=== PATIENT | male | born 1960 | race Caucasian/White ===

== ENCOUNTER 2017-11-01 02:27 | Inpatient (IN) ==
[2017-11-01] MEDS ORDERED: dilTIAZem HCl 100 MG in D5% in Water 50 ML IVC SCH (02:45)
[2017-11-01 02:49] LABS: Basophils % 0.3 %; Eosinophils # 0.2 K/mcL (0.0-0.6); Eosinophils % 2.1 %; Hematocrit 39.3 % (37.5-50.1); Immature Granulocytes % 0.4 % (0-4); Lymphocytes # 1.9 K/mcL (0.6-4.6); Lymphocytes % 16.8 %; Mean Corpuscular HGB Conc 33.1 g/dL (31.6-35.5); Mean Corpuscular Hemoglobin 31.3 pg (28.0-33.3); Mean Corpuscular Volume 94.5 fL (83.0-100.0); Mean Platelet Volume 9.3 fL (9.4-12.4); Monocytes # 0.8 K/mcL (0.0-1.3); Monocytes % 6.8 %; Neutrophils # 8.4 K/mcL (1.6-8.9); Platelet Count 274 K/mcL (140-400); Red Blood Count 4.16 M/mcL (4.19-5.50); Red Cell Distribution Width 13.1 % (11.5-14.5); Segmented Neutrophils % 73.6 %
--- NOTE | 2017-11-01 02:50 | Emergency Department Note ---
Disposition Clinical Impression: Atrial fibrillation with rapid ventricular response, Tobacco abuse Dyspnea Qualifiers: Dyspnea type: unspecified Qualified Code(s): R06.00 - Dyspnea, unspecified Disposition: Admitted As Inpatient Condition: Good Time of Disposition: 04:31 SOB HPI - General Chief Complaint: ED Shortness of Breath/Dyspnea Stated Complaint: Dyspnea Time Seen by Provider: 11/01/17 02:35 Source: patient Limitations: no limitations Nursing Notes Reviewed: Yes Vital Signs Reviewed: Yes - History of Present Illness 57-year-old male pack per day smoker, hypertension, diabetes, hypercholesterolemia presents to the ED with difficulty breathing and racing of the heart. States the symptoms have been ongoing for the past week but last night around 2200 while getting ready for bed it seemed to be worse. Feels like his heart is fluttering. He states this is been ongoing for the past couple months actually. No other history of this before. EKG was performed showed that he has and atrial fibrillation with rapid ventricular response. He denies known history of atrial fibrillation. He is having some chest discomfort associated with this. Denies any recent fevers. He has been getting over a cough that was diagnosed as bronchitis. Whenever he exerts himself he feels more short breath. No history of cardiac ischemic disease. No history of blood clots. Denies any blood in the stool or blacked tarry stools. Denies any nausea or vomiting. Patient has a history of hemochromatosis which he follows with Dr. Pruitt. At this time will give him a bolus of 20 mg Cardizem his blood pressure is 148/97. Will be worked up and admitted. Pt Subjective Complaint: shortness of breath - Related Data Home Medications Medication Instructions Recorded Confirmed Aspirin Enteric Coated [Aspirin EC] 81 mg PO DAILY 06/07/15 10/11/17 Docusate [Colace] 100 mg PO DAILY PRN 06/07/15 10/11/17 Gemfibrozil [Lopid] 600 mg PO BIDWM 06/07/15 10/11/17 HYDROcodone/Acet 5/325 mg [[place] 1 tab PO TID PRN 06/07/15 10/11/17 5-325 mg] Hydrochlorothiazide 25 mg PO DAILY 06/07/15 10/11/17 Metformin [Glucophage] 1,000 mg PO BIDWM 06/07/15 10/11/17 NIFEdipine [Nifedical Xl] 30 mg PO DAILY 06/07/15 10/11/17 Omeprazole [PriLOSEC] 20 mg PO DAILY 06/07/15 10/11/17 Meloxicam [Mobic] 15 mg PO DAILY 10/11/15 10/11/17 Cholecalciferol (D-3) [Vitamin D] 1,000 unit PO DAILY 07/13/16 10/11/17 Glimepiride [Amaryl] 1 tab PO BID 07/13/16 10/15/17 Lisinopril [Zestril] 40 mg PO DAILY 07/13/16 10/11/17 Procardia 10/11/17 [place]-3/Dha/Epa/Fish Oil [Fish Oil 1 each PO 10/15/17 1,000 mg Softgel] Previous Rx's Medication Instructions Recorded Albuterol Sulfate [Albuterol 2 puff IH QID #1 inhaler 10/11/17 Inhaler] Azithromycin [Azithromycin 6-Tab 250 mg PO PER PKG DI #6 tab 10/11/17 Pack] Benzonatate [Tessalon] 200 mg PO TID PRN #20 capsule 10/11/17 Allergies Allergy/AdvReac Type Severity Reaction Status Date / Time No Known Allergies Allergy Verified 11/01/17 02:32 All systems ED: reviewed and negative except as stated. Review of Systems: As Per HPI Constitutional: Denies: fever, chills ENT ED: Reports: congestion Cardiovascular: Reports: chest pain, palpitations, dyspnea on exertion Respiratory: Reports: cough, dyspnea Gastrointestinal: Denies: abdominal pain, nausea, vomiting Genitourinary: Denies: urgency, dysuria Musculoskeletal: Denies: back pain Integumentary: Denies: rash, abrasion Neurological: Denies: headache Psychiatric: Denies: anxiety, depression Past Medical History - Past Medical History Attestation: Yes The following information was validated with the patient. Source: patient Medical history: Reports: diabetes, hyperlipidemia, hypertension Psychiatric history: Reports: no psych history - Social History Smoking Status: Current every day smoker Alcohol use: Reports: occasionally Drug use: Reports: none Physical Exam - General Limitations: no limitations General appearance: alert, in no apparent distress - Head Head exam: atraumatic, normocephalic, normal inspection - Eye Eye exam: Present: normal appearance, PERRL, EOMI - ENT ENT exam: normal exam, normal oropharynx, mucous membranes moist - Neck Neck exam: Present: normal inspection, full ROM, trachea midline. Absent: tenderness, meningismus - Chest Chest inspection: Present: normal inspection, symmetric chest wall rise. Absent : tenderness, rash - Respiratory Respiratory exam: Present: normal lung sounds bilaterally. Absent: respiratory distress, wheezes - Cardiovascular Cardiovascular exam: Present: tachycardia, irregular rhythm, normal heart sounds - Expanded Cardiovascular Exam Peripheral pulses: 2+: radial (R), radial (L) - Abdominal Exam Abdominal exam: Present: soft, Non-Tender, normal bowel sounds. Absent: tenderness, distention, guarding, rebound, rigidity - Extremities Exam Extremities exam: Present: normal inspection, full ROM, normal capillary refill. Absent: tenderness, pedal edema, calf tenderness - Back Exam Back exam: Present: normal inspection, full ROM. Absent: tenderness - Neurological Exam Neurological exam: Present: alert, oriented X3, normal gait - Psychiatric Psychiatric exam: Present: normal affect, normal mood - Skin Skin exam: Present: warm, dry, intact, normal color. Absent: rash, cyanosis, diaphoresis Course - Reevaluation(s) Reevaluation #1: After that Cardizem bolus and on a drip, his heart rate has come down to the upper 90s. He remains hemodynamically stable. His symptoms are improving. He still feels lightly short of breath. Review the chest x-ray showed out in large silhouette questionable pericardial effusion. I performed a bedside ultrasound that did not reveal any noticeable effusion or tamponade. Review of his labs he has a mild leukocytosis his sodium is low at 129. Glucose is 169. Labs or otherwise unremarkable. No inciting factors for his atrial fibrillation. He will require admission for further evaluation and workup. Impression is dyspnea and atrial fibrillation with rapid ventricular response. - Consultations Consultation #1: Spoke with on-call hospitalist surinder John to admit for new onset afib, atrial fibrillation c RVR, dyspnea. No further orders at this time Vital Signs Temperature 97.7 F 11/01/17 02:27 Pulse Rate 154 11/01/17 02:27 Respiratory Rate 20 11/01/17 02:27 Blood Pressure 148/97 11/01/17 02:27 O2 Sat by Pulse Oximetry 100 11/01/17 02:27 Temperature 97.7 F 11/01/17 02:27 Pulse Rate 96 11/01/17 04:29 Respiratory Rate 18 11/01/17 04:29 Blood Pressure 115/75 11/01/17 04:29 O2 Sat by Pulse Oximetry 97 11/01/17 04:29 Oxygen Delivery Oxygen Delivery Room Air Shortness of Breath/Dyspnea - MDM Narrative Medical decision making narrative: Patient was discussed with my attending physician who agrees with ED management and final disposition. They independently evaluated the patient. Please refer to their attestation to this encounter for additional information. This note was generated by [email or web address] recognition software and as a result grammatical or spelling errors may occur using this program. - Medical Records Medical records reviewed: Yes I reviewed the patient's medical records. - Lab Data Lab results reviewed: Yes I reviewed the patient's lab results. Result diagrams: 11/01/17 02:35 11/01/17 02:35 Lab Results 11/01/17 11/01/17 11/01/17 Range/Units 02:35 02:35 02:35 WBC 11.4 H (4.3-11.1) K/mcL RBC 4.16 L (4.19-5.50) M/mcL Hgb 13.0 (12.9-16.9) g/dL Hct 39.3 (37.5-50.1) % MCV 94.5 (83.0-100.0) fL MCH 31.3 (28.0-33.3) pg MCHC 33.1 (31.6-35.5) g/dL RDW 13.1 (11.5-14.5) % Plt Count 274 (140-400) K/mcL MPV 9.3 L (9.4-12.4) fL Immature Gran % 0.4 (0-4) % Seg Neutrophils % 73.6 % Lymphocytes % 16.8 % Monocytes % 6.8 % Eosinophils % 2.1 % Basophils % 0.3 % Neutrophils # 8.4 (1.6-8.9) K/mcL Lymphocytes # 1.9 (0.6-4.6) K/mcL Monocytes # 0.8 (0.0-1.3) K/mcL Eosinophils # 0.2 (0.0-0.6) K/mcL Basophils # 0.0 (0.0-0.2) K/mcL PT 12.8 H (9.4-12.1) Seconds INR 1.2 APTT 31.9 (26.0-36.0) Seconds Sodium 129 L (136-145) mEq/L Potassium 4.5 (3.5-5.1) mEq/L Chloride 98 (98-107) mEq/L Carbon Dioxide 22 L (23-29) mEq/L BUN 20 (6-20) mg/dL Creatinine 1.19 (0.70-1.30) mg/dL Est GFR ( Amer) > 60 (> 60) Est GFR (Non-Af Amer) > 60 (> 60) BUN/Creatinine Ratio 17 (6-26) Glucose 169 H (70-105) mg/dL Calculated Osmolality 275 L (280-300) Calcium 10.2 (8.6-10.3) mg/dL Troponin I (< 0.04) ng/mL TSH 4.221 (0.340-5.600) mcIU/mL 11/01/17 Range/Units 02:35 WBC (4.3-11.1) K/mcL RBC (4.19-5.50) M/mcL Hgb (12.9-16.9) g/dL Hct (37.5-50.1) % MCV (83.0-100.0) fL MCH (28.0-33.3) pg MCHC (31.6-35.5) g/dL RDW (11.5-14.5) % Plt Count (140-400) K/mcL MPV (9.4-12.4) fL Immature Gran % (0-4) % Seg Neutrophils % % Lymphocytes % % Monocytes % % Eosinophils % % Basophils % % Neutrophils # (1.6-8.9) K/mcL Lymphocytes # (0.6-4.6) K/mcL Monocytes # (0.0-1.3) K/mcL Eosinophils # (0.0-0.6) K/mcL Basophils # (0.0-0.2) K/mcL PT (9.4-12.1) Seconds INR APTT (26.0-36.0) Seconds Sodium (136-145) mEq/L Potassium (3.5-5.1) mEq/L Chloride (98-107) mEq/L Carbon Dioxide (23-29) mEq/L BUN (6-20) mg/dL Creatinine (0.70-1.30) mg/dL Est GFR ( Amer) (> 60) Est GFR (Non-Af Amer) (> 60) BUN/Creatinine Ratio (6-26) Glucose (70-105) mg/dL Calculated Osmolality (280-300) Calcium (8.6-10.3) mg/dL Troponin I 0.03 (< 0.04) ng/mL TSH (0.340-5.600) mcIU/mL - Radiology Data Radiology results reviewed: Yes I reviewed the patient's radiology results. Chest X-Ray 11/01/17 02:39 IMPRESSION: 1. Clear lungs. 2. Interval enlargement of the cardiac silhouette. While this could be due to differences in technique and patient positioning pericardial effusion should be considered. D/ / Phillip Robbins MD / Phillip Robbins MD Interpreting Provider: Phillip Robbins MD - EKG Data EKG attestation: Yes I reviewed and interpreted this EKG. EKG results narrative: EKG performed 0232 atrial fibrillation with rapid ventricular response 1 32 bpm , nonspecific ST T-wave changes, QRS 118. Compared prior EKG performed 2013. This appears to be new onset atrial fibrillation. No acute ischemic changes. Critical Care Time Critical Care Time: Yes Total Critical Care Time: 40 Attestation: Critical care performed: Time is exclusive of separately billable procedures. Time includes: direct patient care, patient reassessment, coordination of patient care, interpretation of data (laboratory data, radiology data, and respiratory data), review of patient's medical records, medical consultation and documentation of patient care. Procedures included in critical care time: Procedures excluded from critical care time: Attestation Statement - Attestation Attestation: IChava MD, personally evaluated this patient and discussed their management with the resident physician. I reviewed the resident's note and agree with the documented findings, medical decision making, and plan of care. 57-year-old male persist to the emergency department with a complaint of having an intermittent sensation of a knot in his chest over the past 2 months. He sometimes has some mild palpitations associated with this. He complains over the past 2 weeks of having shortness of breath especially with exertion. On arrival in the emergency department the patient was found to be in atrial fibrillation with RVR. No prior history. On examination patient is a well-developed well-nourished well-appearing male in no acute distress. He is alert and oriented 3. There is no cyanosis or diaphoresis. Chest is nontender to palpation. Breath sounds are clear and equal bilaterally. Heart is irregularly irregular and tachycardic. Abdomen is soft and nontender with normal bowel sounds. EKG shows atrial fibrillation with RVR. Labs reviewed. Chest x-ray shows clear lungs. Patient received Cardizem and placed on Cardizem infusion with improvement in his heart rate remains in atrial fibrillation. The hospitalist, Dr. Carr, was consulted and accepted admission of the patient.
[2017-11-01 02:55] LABS: INR 1.2; Prothrombin Time 12.8 Seconds (9.4-12.1)
[2017-11-01 02:58] LABS: Activated Partial Thrombo Time 31.9 Seconds (26.0-36.0)
[2017-11-01] MEDS ORDERED: 0.9 % Sodium Chloride 1,000 ML ONE (03:03)
[2017-11-01 03:05] LABS: BUN/Creatinine Ratio 17 (6-26); Blood Urea Nitrogen 20 mg/dL (6-20); Calcium 10.2 mg/dL (8.6-10.3); Carbon Dioxide 22 mEq/L (23-29); Chloride 98 mEq/L (98-107); Glucose 169 mg/dL (70-105); Osmolality,Calculated 275 (280-300); Potassium 4.5 mEq/L (3.5-5.1); Sodium 129 mEq/L (136-145); eGFR For African Americans > 60 (> 60); eGFR For Non-African Americans > 60 (> 60)
[2017-11-01] MEDS ORDERED: 0.9 % Sodium Chloride 1,000 ML IVC SCH ×2 (03:15→04:45)
[2017-11-01 03:18] LABS: Thyroid Stimulating Hormone 4.221 mcIU/mL (0.340-5.600)
[2017-11-01] MEDS ORDERED: Ipratropium/Albuterol Neb 3 ML IH PRN (04:37)
[2017-11-01] MEDS ORDERED: Acetaminophen 325 MG TABLET PO PRN (04:37)
[2017-11-01] MEDS ORDERED: Nitroglycerin 0.4 MG TAB.SUBL SL PRN (04:37)
[2017-11-01] MEDS ORDERED: Dextrose Gel 15 GM/37.5 ML TUBE PO PRN ×2 (04:40)
[2017-11-01] MEDS ORDERED: D5% in Water 1,000 ML IVC PRN (04:40)
[2017-11-01] MEDS ORDERED: *HR* Dextrose 50 % in Water (Syg) 50 ML SYRINGE IVP PRN (04:40)
[2017-11-01] MEDS ORDERED: *HR* Heparin 5,000 UNIT/ML VIAL IVP PRN ×2 (04:40)
[2017-11-01] MEDS ORDERED: *HR* HYDROcodone/Acet 5/325 mg TABLET PO PRN (04:43)
[2017-11-01] MEDS ORDERED: Ondansetron 4 MG/2 ML VIAL IVP PRN (04:44)
[2017-11-01] MEDS ORDERED: Naloxone 0.4 MG/ML INJ IVP PRN (04:44)
[2017-11-01] MEDS ORDERED: *HR* Morphine 2 MG/ML SYRINGE IVP PRN (04:44)
--- NOTE | 2017-11-01 04:50 | Internal Med History&Physical ---
Date of Encounter: 11/01/17 Time of Encounter: 04:46 Assessment and Plan (1) Atrial fibrillation with rapid ventricular response Current visit: Yes Status: Acute A. fib with RVR possibly triggered by acute bronchitis possibly bacterial Continue Cardizem drip, start heparin drip as the patient has a CHA2 DS2 VASc score of 2 (HTN, DM) Cardiology consult Rocephin Check a UA Omeprazole for GI prophylaxis and heparin drip for DVT prophylaxis. The patient will be admitted for observation. Full code. Time spent on this admission 40 minutes (2) Acute bronchitis with COPD Current visit: Yes Status: Acute Low dose prednisone. will require pulmonary function tests as outpatient (3) Hypertension Current visit: Yes Status: Acute Continue home meds, start hydralazine IV as needed Qualifiers: Hypertension type: essential hypertension Qualified Code(s): I10 - Essential (primary) hypertension (4) Hemochromatosis Current visit: No Status: Chronic Follow-up as outpatient, managed by oncology Frequent phlebotomies Qualifiers: Hemochromatosis type: hereditary Qualified Code(s): E83.110 - Hereditary hemochromatosis (5) Tobacco abuse Current visit: Yes Status: Chronic Smoking cessation counseling given for 5 minutes, nicotine patch Internal Medicine - H&P: HPI Chief complaint: Shortness of breath Admitted From: Emergency Dept History of present illness: Mr. Church is a 57 year old male with a past medical history of tobacco use, diabetes not insulin-dependent, hypertension, never diagnosed with COPD, came to the emergency room complaining of difficulty breathing that started to get worse in the past week. He says that he has been having problems with heart flattering for the past 4 months intermittently. Worse last night that 10 PM as he felt his heart rate was very increased. Upon admission his heart rate was 154, an EKG showed atrial fibrillation with rapid ventricular response. Her blood cell count is 11.4, sodium 129, glucose 169. Chest x-ray shows an enlarged cardiac silhouette, pericardial effusion should be considered. Patient has been complaining of a productive cough and has been dealing with bronchitis for the past few weeks. Blood pressure is 148/97. Patient was started on a Cardizem 20 mg IV and drip was ordered. Says that his has been having bronchitis as well. Denies any other complaint. 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, rectal fissure repair) - Social History Smoking Status: Current every day smoker Packs per day: 1 pack per day Alcohol use: occasionally (3 beers) Drug use: none - Additional Family History Additional family history: Brother with colon cancer, brother with hypertensive cardiomyopathy Internal Medicine - H&P: Meds Aspirin Enteric Coated [Aspirin EC] 81 mg PO DAILY 06/07/15 [History] Docusate [Colace] 100 mg PO DAILY PRN 06/07/15 [History] Gemfibrozil [Lopid] 600 mg PO BIDWM 06/07/15 [History] HYDROcodone/Acet 5/325 mg [[place] 5-325 mg] 1 tab PO TID PRN 06/07/15 [History] Hydrochlorothiazide 25 mg PO DAILY 06/07/15 [History] Metformin [Glucophage] 1,000 mg PO BIDWM 06/07/15 [History] NIFEdipine [Nifedical Xl] 30 mg PO DAILY 06/07/15 [History] Omeprazole [PriLOSEC] 20 mg PO DAILY 06/07/15 [History] Meloxicam [Mobic] 15 mg PO DAILY 10/11/15 [History] Cholecalciferol (D-3) [Vitamin D] 1,000 unit PO DAILY 07/13/16 [History] Glimepiride [Amaryl] 1 tab PO BID 07/13/16 [History] Lisinopril [Zestril] 40 mg PO DAILY 07/13/16 [History] Albuterol Sulfate [Albuterol Inhaler] 2 puff IH QID #1 inhaler 10/11/17 [Rx] Azithromycin [Azithromycin 6-Tab Pack] 250 mg PO PER PKG DI #6 tab 10/11/17 [Rx] Benzonatate [Tessalon] 200 mg PO TID PRN #20 capsule 10/11/17 [Rx] Procardia 10/11/17 [History] [place]-3/Dha/Epa/Fish Oil [Fish Oil 1,000 mg Softgel] 1 each PO 10/15/17 [History ] 3 Allergy/AdvReac Type Severity Reaction Status Date / Time No Known Allergies Allergy Verified 11/01/17 02:32 All Systems PM: A 10-system review of systems was performed and is negative for pertinent findings except as documented above in the HPI. Review of systems: No chest pain, continues to be short of breath, other systems out of the 10 reviewed were negative - Constitutional Vitals: Temp Pulse Resp BP Pulse Ox 97.7 F 96 18 115/75 97 11/01/17 02:27 11/01/17 04:29 11/01/17 04:29 11/01/17 04:29 11/01/17 04:29 General appearance: Present: A&O X 3 - Head Head exam: Present: atraumatic, normocephalic - Eye Eye exam: Present: PERRL, conjuntiva pink, sclera anicteric Pupils: Present: PERRL - Neck Neck exam general surgery: Present: supple, trachea midline. Absent: lymphadenopathy - Respiratory Respiratory exam: Present: CTAB, wheezes (Mild diffuse wheezing). Absent: accessory muscle use, rales, rhonchi - Cardiovascular Cardiovascular exam: Present: irregular rhythm, RRR, +S1, +S2, tachycardia. Absent: diastolic murmur, gallop, rubs, systolic murmur - GI/Abdominal GI/Abdominal exam: Present: normal bowel sounds, soft, no peritoneal signs. Absent: distended, tenderness - Extremities Exam Extremities exam: Present: warm, radial pulses palpable and symmetrical. Absent : calf tenderness, cyanotic, pedal edema - Neurological Exam Neurological exam: Present: CN II-XII intact, oriented X3, no focal deficits. Absent: pronater drift, facial droop, speech deficit - Skin Skin exam: Present: dry, intact Internal Med - H&P Results - Labs CBC & Chem 7: 11/01/17 02:35 11/01/17 02:35
[2017-11-01] MEDS: Heparin 25,000 UNIT/500 ML D5W 25,000 UNIT/500 ML BAG IVC SCH (06:08)
[2017-11-01 08:54] LABS: Bilirubin,Urine Negative (Negative); Blood,Urine Negative (Negative); Clarity,Urine Clear (Clear); Color,Urine Yellow (Yellow); Glucose,Urine (UA) Normal (Normal); Ketones,Urine Negative (Negative); Leukocyte Esterase,Urine Negative (Negative); Nitrite,Urine Negative (Negative); PH,Urine 5.5 pH Units (5.0-8.0); Protein,Urine Negative (Neg-Trace); Specific Gravity,Urine 1.017 (1.010-1.025); Urobilinogen,Urine Normal (Normal)
[2017-11-01] MEDS ORDERED: Lisinopril 20 MG TABLET PO SCH (09:00)
[2017-11-01] MEDS ORDERED: NIFEdipine XL (24 HR) 30 MG TAB.ER.24 PO SCH (09:00)
[2017-11-01] MEDS ORDERED: cefTRIAXone 1,000 MG in Water for inj. (sterile) 10 ML IVP SCH (09:00)
[2017-11-01] MEDS: Insulin LISPRO 300 UNITS/3 ML VIAL SQ SCH ×4 (09:01→23:27)
--- NOTE | 2017-11-01 09:03 | Cardiology Consult Note ---
<Peter Upton - Last Filed: 11/01/17 12:52> Date of Encounter: 11/01/17 Time of Encounter: 09:00 Assessment and Plan (1) Atrial fibrillation with rapid ventricular response Current Visit: Yes Status: Acute Patient presented with elevated heart rate of 1 54 bpm; EKG demonstrated A. fib with RVR. Possibly triggered by acute bronchitis; possibly bacterial. Presented with leukocytosis. Currently on ceftriaxone Rate currently well controlled at 85 bpm. Plan: -ASA 81 mg -Heparin drip; CHA2 DS2 VASc score of 2 (HTN, DM) -Continuous cardiac monitoring -Echocardiogram has been ordered. -Patient will need workup for ischemia; C vs Stress test based on results of echocardiogram. (2) Hypertension Current Visit: Yes Status: Acute Patient has known history of HTN Presented with with a blood pressure of 148/97. Latest blood pressure reading was 111/87. Plan: -Hydralazine 10 mg IV Q6 PRN -HCTZ 25 mg PO QD -Lisinopril 40 mg PO QD -Nifedipine XL 30 mg PO QD Qualifiers: Hypertension type: essential hypertension Qualified Code(s): I10 - Essential (primary) hypertension (3) Tobacco abuse Current Visit: Yes Status: Chronic Patient admits to being a pack per day smoker. Plan: -Nicotine patch. (4) Hyperlipidemia Current Visit: Yes Status: Acute Gemfibrozil 600 mg PO BID WM Qualifiers: Qualified Code(s): E78.5 - Hyperlipidemia, unspecified Discussion w patient/family: The assessment and plan as outlined above was discussed with the patient and/or family members who expressed understanding and agreement. All questions were answered. Thank you for involving us in the care of your patient. Please call with any questions. History of Present Illness Consult date: 11/01/17 Chief complaint: Shortness of breath History of present illness: Mr. Church is a 57 year old male with a PMH of HTN, DM, HLD, hemachromatosis, and tobacco use (1 PPD) who presented to the ED with a chief complaint of SOB and palpitations. Patient reports that these symptoms have been ongoing for the last week. At approximately 10 PM while getting ready for bed, symptoms worsened. Patient reported that his heart was fluttering. No prior history of these symptoms. Denies a history of atrial fibrillation or cardiac disease. Reported having chest discomfort along with his palpitations. He reports getting over a cough that was diagnosed as bronchitis. Upon presentation, EKG demonstrated A. fib with RVR. On presentation, patient's pulse was 154 bpm and his respiratory rate was 20 per minute. Other vital signs were within normal limits. Patient was given a Cardizem bolus and was started on a Cardizem drip. Heart rate decreased to upper 90s. Patient was hemodynamically stable. Laboratory examination demonstrated an elevated white count 11.4. TSH and troponin were within normal limits. CXR demonstrated interval enlargement of cardiac silhouette; echocardiogram was ordered. Patient's [id number] score is 2 due to his history of HTN and DM; patient was therefore started on a heparin drip. He was also started on ceftriaxone. Patient was seen and examined this morning. He reports that he is still feeling short of breath. Denies any chest pain or palpitations. Denies diaphoresis, nausea, dizziness, or lightheadedness. Patient resting comfortably in bed and has no other complaints at this time. Past Med Surg Social Fam HX - Past Medical History Medical history: diabetes, GERD, hyperlipidemia, hypertension Psychiatric history: no psych history - Past Surgical History Surgical History: appendectomy - Social History Smoking Status: Current every day smoker Packs per day: 1 Smokeless Tobacco Status: No Alcohol use: occasionally Drug use: none Medications and Allergies Aspirin Enteric Coated [Aspirin EC] 81 mg PO DAILY 06/07/15 [History] Docusate [Colace] 100 mg PO DAILY PRN 06/07/15 [History] Gemfibrozil [Lopid] 600 mg PO BIDWM 06/07/15 [History] HYDROcodone/Acet 5/325 mg [[place] 5-325 mg] 1 tab PO TID PRN 06/07/15 [History] Hydrochlorothiazide 25 mg PO DAILY 06/07/15 [History] NIFEdipine [Nifedical Xl] 30 mg PO DAILY 06/07/15 [History] Omeprazole [PriLOSEC] 20 mg PO DAILY 06/07/15 [History] Cholecalciferol (D-3) [Vitamin D] 1,000 unit PO DAILY 07/13/16 [History] Glimepiride [Amaryl] 1 mg PO BID 07/13/16 [History] Lisinopril [Zestril] 40 mg PO DAILY 07/13/16 [History] Albuterol Sulfate [Albuterol Inhaler] 2 puff IH QID #1 inhaler 10/11/17 [Rx] [place]-3/Dha/Epa/Fish Oil [Fish Oil 1,000 mg Softgel] 1 cap PO DAILY 10/15/17 [ History] 3 Allergy/AdvReac Type Severity Reaction Status Date / Time No Known Allergies Allergy Verified 11/01/17 02:32 All Systems Review: A 10-system review of systems was performed and is negative for pertinent findings except as documented above in the HPI. - Constitutional Constitutional: no fatigue, no fever(s), no lethargy - Cardiovascular Cardiovascular: chest pain with exertion, dyspnea at rest, dyspnea on exertion, irregular heart rhythm, no chest pain at rest, no diaphoresis, no radiating jaw , neck or arm pain - Respiratory Respiratory: cough, dyspnea - Neurological Neurological: no syncope Physical Examination Vital Signs, Last 4 Hours Temp Pulse Resp BP Pulse Ox 11/01/17 07:26 97.8 F 85 16 111/87 97 11/01/17 05:12 98 F 93 18 111/73 94 General: Conversant, No Apparent Distress HEENT: Atraumatic, Normocephaly, Mucus Membranes Moist Neck: No JVD, Normal carotid pulses Cardiac: Other (Afib) Neuro: Alert and responsive, No focal deficits noted Skin: No rashes noted on visualized skin Musculoskeletal: No Chest Wall Tenderness Extremities: No Clubbing, No Cyanosis, No Edema, Normal Pulses Results 11/01/17 02:35 11/01/17 02:35 Consult Discharge Plan - Plan Referrals: Peggy Perdomo, [facility] EDUCATION SPECIALIST [Primary Care Provider] - <Dirk Leyva - Last Filed: 11/01/17 17:50> Date of Encounter: 11/01/17 - Attending Attestation I examined this patient and my medical decision-making was reviewed with the Resident Physician. I agree with the documented findings, disposition and treatment plan as described except to the extent set forth below. 57 YOM with DM,HTN, presents with OLIVAREZ and Exertional CP ECHO to evaluate RWMA (severe LV dysfunction) LHC in am due to continued mild orthopnea Assessment and Plan Discussion w patient/family: The assessment and plan as outlined above was discussed with the patient and/or family members who expressed understanding and agreement. All questions were answered. Thank you for involving us in the care of your patient. Please call with any questions. History of Present Illness History of present illness: Mr. Church is a 57 year old male All Systems Review: A 10-system review of systems was performed and is negative for pertinent findings except as documented above in the HPI. Physical Examination Vital Signs, Last 4 Hours Temp Pulse Resp BP Pulse Ox 11/01/17 17:00 97.5 F L 112 14 116/92 98 11/01/17 16:11 105 114/88 11/01/17 14:26 110 116/94 99 Results 11/01/17 02:35 11/01/17 02:35 Lab Results 11/01/17 11/01/17 12:01 14:00 APTT 35.6 Troponin I 0.03
--- NOTE | 2017-11-01 09:29 | Electrocardiograph Report ---
[place] [id number] Test Date: 2017-11-01 Pat Name: Dwayne Church Department: 104 Room: [id number] Gender: M Crm Coordinator: : 1960 Requested By: Taj Diehl Order Number: [id number] Reading MD: Elizabeth Lombardi Measurements Intervals [place] Rate: 132 P: IN: 0 QRS: 16 QRSD: 118 T: 29 QT: 288 QTc: 366 Interpretive Statements ATRIAL FIBRILLATION WITH RAPID VENTRICULAR RESPONSE MODERATE INTRAVENTRICULAR CONDUCTION DELAY NONSPECIFIC ST & T-WAVE ABNORMALITY ABNORMAL RHYTHM ECG Electronically Signed On 11-01-2017 9:27:01 EST by Elizabeth Lombardi
[2017-11-01 10:34] LABS: Adenovirus Not Detected (Not Detect); Bordetella Pertussis Not Detected (Not Detect); Chlamydophila pneumoniae Not Detected (Not Detect); Coronavirus 229E Not Detected (Not Detect); Coronavirus HKU1 Not Detected (Not Detect); Coronavirus NL63 Not Detected (Not Detect); Coronavirus OC43 Not Detected (Not Detect); Human Metapneumovirus Not Detected (Not Detect); Human Rhinovirus/Enterovirus Not Detected (Not Detect); Influenza A Subtype 2009 H1 Not Detected (Not Detect); Influenza A Untypeable Not Detected (Not Detect); Influenza B Not Detected (Not Detect); Mycoplasma pneumoniae Not Detected (Not Detect); Parainfluenza Virus 1 Not Detected (Not Detect); Parainfluenza Virus 2 Not Detected (Not Detect); Parainfluenza Virus 3 Not Detected (Not Detect); Parainfluenza Virus 4 Not Detected (Not Detect); Respiratory Syncytial Virus Not Detected (Not Detect)
[2017-11-01] MEDS ORDERED: ALPRAZolam 0.25 MG TABLET PO ONE (11:37)
[2017-11-01] MEDS: Nicotine 21 MG PATCH.TD24 TD SCH (11:41)
[2017-11-01] MEDS: hydroCHLOROthiazide 25 MG TABLET PO SCH (11:41)
--- NOTE | 2017-11-01 11:46 | Event Note ---
Date of Encounter: 11/01/17 Time of Encounter: 11:02 Patient is a 57y/o male admitted for new onset Afib with RVR and acute bronchitis with COPD. Pt seen and examined with present at bedside. Currently on cardizem gtt, rate appropriately controlled, on heparin gtt for anticoagulation Will start on Levaquin 750mg IV qd and d/c ceftriaxone UA negative for UTI respiratory viral panel negative cardiology evaluation requested Pt reports of difficulty breathing even though O2 saturation is 97% on room air , pt appears very anxious and restless. Will give one time dose of Xanax 0.25mg PO. Will closely monitor respiratory status
[2017-11-01] MEDS: predniSONE 20 MG TABLET PO SCH (11:48)
[2017-11-01] MEDS: Aspirin Enteric Coated 81 MG Tablet PO SCH (11:48)
[2017-11-01] MEDS: Levofloxacin 750 MG/150 ML 750 MG/150 ML BAG IVPB SCH (12:38)
[2017-11-01] MEDS ORDERED: ALPRAZolam 0.5 MG TABLET PO ONE (13:44)
[2017-11-01] MEDS ORDERED: Furosemide 40 MG/4 ML VIAL IVP ONE ×2 (14:59→21:13)
[2017-11-01] MEDS: Metoprolol XL (24 HR) Succ 25 MG TAB.ER.24H PO SCH ×2 (16:34→18:31)
[2017-11-02] MEDS: Heparin 25,000 UNIT/500 ML D5W 25,000 UNIT/500 ML BAG IVC SCH (02:55)
[2017-11-02 07:36] LABS: BUN/Creatinine Ratio 23 (6-26); Blood Urea Nitrogen 31 mg/dL (6-20); Calcium 9.3 mg/dL (8.6-10.3); Carbon Dioxide 21 mEq/L (23-29); Chloride 100 mEq/L (98-107); Glucose 138 mg/dL (70-105); Osmolality,Calculated 283 (280-300); Potassium 4.3 mEq/L (3.5-5.1); Sodium 132 mEq/L (136-145); eGFR For African Americans > 60 (> 60); eGFR For Non-African Americans 54 (> 60)
[2017-11-02] MEDS: Insulin LISPRO 300 UNITS/3 ML VIAL SQ SCH ×4 (09:20→20:39)
[2017-11-02] MEDS: Levofloxacin 750 MG/150 ML 750 MG/150 ML BAG IVPB SCH (09:21)
--- NOTE | 2017-11-02 09:22 | Internal Med Progress Note ---
<DeaconNeftali - Last Filed: 11/02/17 14:22> Date of Encounter: 11/02/17 Time of Encounter: 09:14 - Assessment and plan (1) Atrial fibrillation with rapid ventricular response Current Visit: Yes Status: Acute Assessment and plan: Patient's heartbeat is rapid and irregularly irregular at the time of examination. Echo yesterday showed LVEF of 10-15% and hypokinesis. Continue heart monitor and heparin drip Plan is for [facility] today. (2) Acute bronchitis with COPD Current Visit: Yes Status: Acute Assessment and plan: Resolving. Continue prednisone and ceftriaxone. Patient will need PFTs as outpatient after resolution of acute illness to establish diagnosis of COPD. Patient is on intermittent oxygen, though saturation is consistently high. Nebulizer breathing treatment as needed. (3) Diabetes Current Visit: Yes Status: Chronic Assessment and plan: Controlled. Continue sliding scale insulin. Qualifiers: Diabetes mellitus type: type 2 Diabetes mellitus complication status: without complication Diabetes mellitus chcf insulin use: without chcf use Qualified Code(s): E11.9 - Type 2 diabetes mellitus without complications (4) Hypertension Current Visit: Yes Status: Chronic Assessment and plan: Controlled. Continue home medications. Qualifiers: Hypertension type: essential hypertension Qualified Code(s): I10 - Essential (primary) hypertension (5) Hyperlipidemia Current Visit: Yes Status: Chronic Assessment and plan: Continue gemfibrozil Qualifiers: Hyperlipidemia type: unspecified Qualified Code(s): E78.5 - Hyperlipidemia , unspecified (6) Hemochromatosis Current Visit: No Status: Chronic Assessment and plan: Patient with known hemochromatosis Consider cardiac deposition as an unlikely cause of the patient's symptoms Qualifiers: Hemochromatosis type: hereditary Qualified Code(s): E83.110 - Hereditary hemochromatosis - Subjective Interval history: Patient is feeling somewhat better today and in no distress. He complains of dyspnea when lying flat and has trouble sleeping at night because of it. The xanax and being propped up helps. He continues to have intermittent fluttering in his chest. He denies any nausea, vomiting, diarrhea, feelings of distention or abdominal pain. - Constitutional Vitals: Temp Pulse Resp BP Pulse Ox 97.7 F 95 14 101/92 96 11/02/17 06:49 11/02/17 06:49 11/02/17 06:49 11/02/17 06:49 11/02/17 06:49 General appearance: Present: cooperative, A&O X 3, pleasant, no acute distress, answers questions appropriately - Head Head exam: Present: atraumatic, normal inspection, normocephalic - ENT ENT exam: Present: mucous membranes moist - Neck Neck exam general surgery: Present: trachea midline - Respiratory Respiratory exam: Present: decreased breath sounds, CTAB. Absent: accessory muscle use, respiratory distress - Cardiovascular Cardiovascular exam: Present: irregular rhythm, +S1, +S2, tachycardia Additional comments: Patient's heartbeat was very irregular and rate was rapid despite his lack of complaint about any heart problems. - GI/Abdominal GI/Abdominal exam: Present: soft, no peritoneal signs. Absent: tenderness - Extremities Exam Extremities exam: Present: warm. Absent: calf tenderness, pedal edema, tenderness - Expanded Lower Extremities Exam Lower Leg exam: Absent: erythema, swelling Foot/Toe exam: Absent: swelling - Neurological Exam Neurological exam: Present: alert, oriented X3 - Psychiatric Psychiatric exam: Present: normal affect, normal mood - Skin Skin exam: Present: dry, warm. Absent: cyanosis, pallor Internal Medicine: Result - Labs CBC & Chem 7: 11/01/17 02:35 11/02/17 06:26 Labs: BMP 11/02/17 06:26 Sodium 132 L Potassium 4.3 Chloride 100 Carbon Dioxide 21 L BUN 31 H Creatinine 1.35 H Glucose 138 H Calcium 9.3 Cardiac Enzymes 11/01/17 Range/Units 14:00 Troponin I 0.03 (< 0.04) ng/mL - ABG Interpretation ABG results: PT/INR, D-dimer PT 12.8 Seconds (9.4-12.1) H 11/01/17 02:35 - Impressions Impressions Echocardiogram 11/01/17 04:40 Impressions: LVEF 10-15%. Indeterminate diastolic function. Moderately dilated left ventricle. Normal right size with mild reduction in function. Mild-moderate eccentric mitral regurgitation. Mild-moderate tricuspid regurgitation. No pulmonary hypertension. Left Ventricular Wall Motion: Rest Echo Findings The apex, apical inferior, mid inferior, basal inferior, apical anterior, mid anterior, basal anterior, apical septal, mid inferior septal, basal inferior septal, apical lateral, mid anterior lateral, basal anterior lateral, mid anterior septal, mid inferior lateral, basal anterior septal and basal inferior lateral chairez were hypokinetic. Findings: Study Quality * Technically adequate exam. ECG Findings * Atrial fibrillation. Left Ventricle * LVEF 10-15%. * Indeterminate diastolic function. * Moderately dilated left ventricle. Right Ventricle * Normal right size with mild reduction in function. Left Atrium * Severely dilated left atrium. Right Atrium * Mildly dilated right atrium. Aortic Valve * No aortic regurgitation. * Aortic valve not well visualized. * No aortic stenosis. Mitral Valve * Normal mitral valve structure. * No mitral stenosis. * Mild-moderate eccentric mitral regurgitation. Tricuspid Valve * Tricuspid valve not well visualized. * Mild-moderate tricuspid regurgitation. * Estimated RA pressure is 3 mmHg. * Estimated RVSP is 32 mmHg. * No pulmonary hypertension. Pulmonic Valve * Pulmonic valve is not well visualized. * No pulmonic stenosis. * No pulmonic regurgitation. Pulmonary Artery * Pulmonary artery not well visualized. Aorta * Normally sized aortic root. Pericardium * There is no pericardial effusion present. Interatrial Septum * No evidence of PFO by color Doppler. IVC * Normal IVC dimensions and inspiratory collapse. Chest X-Ray 11/01/17 21:07 IMPRESSION: No acute cardiopulmonary disease D/ / Bernard Cesar MD / Bernard Cesar MD Interpreting Provider: Bernard Cesar MD Consult Discharge Plan - Plan Referrals: Peggy Perdomo, [employer] [Primary Care Provider] - 11/05/17 8:30 am <Constantino Toledo T - Last Filed: 11/02/17 17:49> Date of Encounter: 11/02/17 - Constitutional Vitals: Temp Pulse Resp BP Pulse Ox 97.8 F 82 14 106/75 96 11/02/17 15:43 11/02/17 15:43 11/02/17 15:43 11/02/17 15:43 11/02/17 15:43 Internal Medicine: Result - Labs CBC & Chem 7: 11/01/17 02:35 11/02/17 06:26 Labs: BMP 11/02/17 06:26 Sodium 132 L Potassium 4.3 Chloride 100 Carbon Dioxide 21 L BUN 31 H Creatinine 1.35 H Glucose 138 H Calcium 9.3 - ABG Interpretation ABG results: PT/INR, D-dimer PT 12.8 Seconds (9.4-12.1) H 11/01/17 02:35 - Impressions Impressions Chest X-Ray 11/01/17 21:07 IMPRESSION: No acute cardiopulmonary disease D/ / Bernard Cesar MD / Bernard Cesar MD Interpreting Provider: Bernard Cesar MD Chest X-Ray 11/02/17 10:09 IMPRESSION: Stable borderline enlarged heart size. No acute pulmonary process. D/ / 11/02/2017 11:43:16 Jamaal Jacobs MD / germaine Interpreting Provider: Jamaal Jacobs MD - Attending Attestation I examined this patient and my medical decision-making was reviewed with the Resident Physician on 11/02/17. I agree with the documented findings, disposition and treatment plan as described except to the extent set forth below. Seen and examined at the bedside 57 M being managed for acute systolic CHF with EF 10-15%, COPDE with bronchitis , Afib with RVR He has a PMH of DM, Tobacco abuse, possible CAD/PVD, Hemochromatosis He denies new complains He is being followed by cardio and awaiting [facility] at time of review Orthopnea and SOB persists Exam is unremarkable and his chest is CTAB Labs and Imaging reviewed, ECHO noted, slight worsening renal function Continue current care, [facility] today, continue Heparin drip . Continue other care, ACEI on hold, hold HCTZ. Hydration after cath. MOnitor renal function High risk due to use of heparin infusion, risk of bleed, risk of worsening renal function after cath Rest of details as in the resident physicians documentation.
[2017-11-02] MEDS: hydroCHLOROthiazide 25 MG TABLET PO SCH (09:23)
[2017-11-02] MEDS: Metoprolol XL (24 HR) Succ 25 MG TAB.ER.24H PO SCH (09:23)
[2017-11-02] MEDS: Aspirin Enteric Coated 81 MG Tablet PO SCH (09:23)
[2017-11-02] MEDS: predniSONE 20 MG TABLET PO SCH (09:23)
--- NOTE | 2017-11-02 09:52 | Cardiology Progress Note ---
<Peter Upton - Last Filed: 11/02/17 12:59> Date of Encounter: 11/02/17 Time of Encounter: 09:30 Assessment and Plan (1) Atrial fibrillation with rapid ventricular response Current Visit: Yes Status: Acute Patient presented with elevated heart rate of 154 bpm; EKG demonstrated A. fib with RVR. Possibly triggered by acute bronchitis; possibly bacterial. Presented with leukocytosis. Currently on ceftriaxone. Hold off on performing LHC yesterday due to patient's difficulty lying flat. Patient was able to lie flat this morning without experiencing cough or shortness of breath. Plan: -ASA 81 mg -Heparin drip; CHA2 DS2 VASc score of 2 (HTN, DM) -Continuous cardiac monitoring -Echocardiogram demostreated EF of 10-15%. -Repeat chest x-ray has been ordered to evaluate for pulmonary edema. -LHC today (2) Hypertension Current Visit: Yes Status: Acute Patient has known history of HTN Plan: -Hydralazine 10 mg IV Q6 PRN -HCTZ 25 mg PO QD -Lisinopril 40 mg PO QD -Nifedipine XL 30 mg PO QD Qualifiers: Hypertension type: essential hypertension Qualified Code(s): I10 - Essential (primary) hypertension (3) Tobacco abuse Current Visit: Yes Status: Chronic Patient admits to being a pack per day smoker. Plan: -Nicotine patch. (4) Hyperlipidemia Current Visit: Yes Status: Acute Gemfibrozil 600 mg PO BID WM Qualifiers: Qualified Code(s): E78.5 - Hyperlipidemia, unspecified Discussion w patient/family: The assessment and plan as outlined above was discussed with the patient and/or family members who expressed understanding and agreement. All questions were answered. Thank you for involving us in the care of your patient. Please call with any questions. Subjective Interval history: Patient seen and examined at bedside this morning. Reports feeling better than he did yeaterday. Still has a cough, but not as short of breath as before. Patient is able to lay flat without difficulty. No complaints at this time. Objective Vital Signs, Last 4 Hours Temp Pulse Resp BP Pulse Ox 11/02/17 06:49 97.7 F 95 14 101/92 96 General: Conversant, No Apparent Distress HEENT: Atraumatic, Normocephaly, Mucus Membranes Moist Neck: No JVD, Normal carotid pulses Cardiac: Other (Atrial fibrillation) Lungs: Other (fine bibasilar crackles) Neuro: Alert and responsive, No focal deficits noted Abdomen: Soft, Non-Tender Skin: No rashes noted on visualized skin Musculoskeletal: No Chest Wall Tenderness Extremities: No Clubbing, No Cyanosis, No Edema, Normal Pulses Results 11/01/17 02:35 11/02/17 06:26 Lab Results 11/01/17 11/01/17 11/01/17 12:01 14:00 19:34 APTT 35.6 59.9 H D Sodium Potassium Chloride Carbon Dioxide BUN Creatinine Glucose Calcium Troponin I 0.03 11/02/17 11/02/17 06:26 06:26 APTT 51.7 H Sodium 132 L Potassium 4.3 Chloride 100 Carbon Dioxide 21 L BUN 31 H Creatinine 1.35 H Glucose 138 H Calcium 9.3 Troponin I Consult Discharge Plan - Plan Referrals: Peggy Perdomo, [employer] ADJUSTER [Primary Care Provider] - 11/05/17 8:30 am <Dirk Leyva - Last Filed: 11/02/17 14:44> Date of Encounter: 11/02/17 Assessment and Plan Discussion w patient/family: The assessment and plan as outlined above was discussed with the patient and/or family members who expressed understanding and agreement. All questions were answered. Thank you for involving us in the care of your patient. Please call with any questions. I examined this patient and my medical decision-making was reviewed with the Resident Physician. I agree with the documented findings, disposition and treatment plan as described except to the extent set forth below. Afib with orthopnea and PND ECHO severe dysfunction [facility] pending Objective Vital Signs, Last 4 Hours Temp Pulse Resp BP Pulse Ox 11/02/17 11:35 97.6 F 85 14 105/74 99 Results 11/01/17 02:35 11/02/17 06:26 Lab Results 11/01/17 11/02/17 11/02/17 19:34 06:26 06:26 APTT 59.9 H D 51.7 H Sodium 132 L Potassium 4.3 Chloride 100 Carbon Dioxide 21 L BUN 31 H Creatinine 1.35 H Glucose 138 H Calcium 9.3
[2017-11-02] MEDS: *HR* LORazepam 2 MG/ML VIAL IVP PRN ×2 (15:25→23:50)
[2017-11-02] MEDS ORDERED: Heparin 1,000 UNITS/500 mL 500 ML ONE (16:07)
[2017-11-02] MEDS ORDERED: *HR* Heparin 10,000 UNIT/10 ML VIAL ONE (16:07)
[2017-11-02] MEDS ORDERED: 0.9 % Sodium Chloride 1,000 ML ONE ×2 (16:07→16:59)
[2017-11-02] MEDS ORDERED: Nitroglycerin 1,000 MCG/10 ML VIAL IV ONE (16:07)
[2017-11-02] MEDS ORDERED: *HR* Midazolam HCl 2 MG/2 ML VIAL ONE (16:59)
[2017-11-02] MEDS ORDERED: *HR* FentaNYL (PF) 100 MCG/2 ML VIAL ONE (16:59)
--- NOTE | 2017-11-02 17:00 | Pre-Sedation Evaluation ---
Pre-sedation evaluation - Pre-sedation checklist Date of procedure: 11/02/17 Procedure: [facility] Recent Vitals: Last Vital Signs Temp 97.8 F 11/02/17 15:43 Pulse 82 11/02/17 15:43 Resp 14 11/02/17 15:43 BP 106/75 11/02/17 15:43 Pulse Ox 96 11/02/17 15:43 H&P (including ROS) documented in medical record: Yes Previous reaction to sedatives/anesthetics: No Dietary Status: NPO after Midnight Airway Assessment: Patient can open mouth completely, TMJ function normal, Micrognathia (under-bite, receding chin) absent, Neck with adequate range of motion Dentition: No loose teeth or bridges Possible difficult airway: No ASA Classification *see protocol: CLASS II-Mild systemic disease Plan of Care: Pt appropriate candidate for procedure/moderate/conscious sedation , Risks/benefits of procedure/sedation discussed w/ patient/family
[2017-11-02] MEDS ORDERED: Furosemide 40 MG/4 ML VIAL ONE (17:43)
--- NOTE | 2017-11-02 18:03 | Invasive Diagnostic Lab Proc ---
Name: Dwayne Church Date of Study: 11/02/2017 Date: 1960 Ht: 72.0in Medical Record#: [id number] Age: 57 Wt: 222.67lb Gender: Male BSA: 2.23 Order #: [id number] BMI: 30.16 Physicians Procedure Physician: Alejandrina Kimball MD, [facility] Referring MD: Referring MD: Staff Name Position Time In Sites, [facility] RT (R) Monitor 05:08 PM Prashant Tapia RN Monitor 05:08 PM Tamiko Tapia RN Gun Stock Maker 05:08 PM Mica Geller RN Nurse 05:08 PM Indications Indication Cardiomyopathy Procedures Performed Procedure L HRT ARTERY/VENTRICLE ANGIO Pre-Procedure Checklist Informed consent is complete signed and on chart. H&P is on chart. ID band is on and ID verified with patient. Patient NPO for procedure The procedure was described for the patient and questions were answered. Blood Pressure: 105/74 ECG is on chart. Rhythm: Atrial Fibrillation Plan of Care Patient will tolerate the procedure without complications. Adequate level of comfort will be maintained. Hemodynamics will remain stable Patient will recover from procedure without complications. Respiratory function will be maintained. Cardiac rhythm will remain stable. Patient temperature will be maintained. Patient and/or family have verbalized understanding of the procedure. Patient Education Chief Complaint/Reason for Test: Cardiac Cath Developmental Category: Adult (18-64 years) Developmentally Appropriate for Age: Yes Learning Barriers: None Education Needs: Procedure Education Method: Verbal Information Taught: Cardiac Cath Educational Evaluation: Able to repeat information Intravenous Access Time IV Size Location DC'd Fluid/Drip Rate Units RN 02:09 PM 20g 1 14" Patent On Arrival Rt Antecubital 02:09 PM 20g 1 1/4" Patent On Arrival Lt Arm 0.9NaCl 25 ml/hr Tamiko Tapia RN Allergies No Known Allergies Vital Signs Time BP (mmHg) HR (bpm) O2 Sat. RR (bpm) LOC 02:09 PM 105 / 74 85 99 % 16 5 = Fully awake and oriented or at pre-proc level 05:09 PM / % 5 = Fully awake and oriented or at pre-proc level 05:10 PM 127 / 88 % 05:15 PM 125 / 83 103 100 % 15 05:20 PM 115 / 82 110 100 % 13 05:25 PM 115 / 78 94 100 % 16 05:30 PM 102 / 75 102 96 % 12 05:35 PM 116 / 73 100 98 % 18 05:40 PM 113 / 81 106 98 % 22 05:45 PM 123 / 78 % Procedural Medications Time Medication Dose Units Method Given By 05:09 PM Oxygen 2 L/min nasal cannula Tamiko Tapia RN 05:12 PM Versed 2 mg Intravenous Tamiko Tapia RN 05:12 PM Fentanyl 50 mcg Intravenous Tamiko Tapia RN 05:25 PM Lidocaine 2% 17 ml Subcutaneous Alejandrina Kimball MD, FACC 05:38 PM Lasix 40 mg Intravenous Tamiko Tapia RN ASA Classification: CLASS II- Mild systemic disease (i.e. well-controlled diabetes, hypertension, asthma, cigarette smoking) Aydee Score Preprocedure Postprocedure Activity 2- Moves 4 extremities sustained head lift Activity 2- Moves 4 extremities sustained head lift Circulation 2- SBP +/= 20 points of pre-anesthetic level Circulation 2- SBP +/= 20 points of pre-anesthetic level Consciousness 2- Awake and alert oriented x 3 Consciousness 2- Awake and alert oriented x 3 O2 Saturation 2- Able to maintain O2 satruation of 92% on room air O2 Saturation 2- Able to maintain O2 satruation of 92% on room air Respiratory 2- Able to deep breathe and cough well Respiratory 2- Able to deep breathe and cough well Total Score 10 Total Score 10 Contrast Agent: Isovue Diagnostic Contrast: 71 ml Total Contrast: 71 ml Fluoro Dose: 254 mGy Procedure Log Time Note Enter By 05:00 PM CathStat 05:08 PM Pt arrived to boot and shoe laborer 2 at 17:08 tsites 05:08 PM [place] Reyes RT (R) Position: Monitor Time in: 17:08 tsites 05:08 PM Prashant Tapia RN Position: Monitor Time in: 17:08 tsites 05:08 PM Tamiko Tapia RN Position: Gun Stock Maker Time in: 17:08 tsites 05:08 PM Mica Geller RN Position: Nurse Time in: 17:08 tsites 05:09 PM Patient charges- Angio tray pack, Navilyst 3mm J, Pulse Oximetry and ACIST tubing and transducer tsites 05:09 PM Case Delayed No tsites 05:09 PM Physician arrived 17:09 tsites 05:09 PM Meet and greet completed tsites 05:09 PM Sign in performed according to hospital policy. tsites 05:09 PM Procedure start 17:09 tsites 05: PM Time: 17: Oxygen on at 2 L/min per nasal cannula by Tamiko Tapia RN tsites : PM Time: 17:09 Patient comfortable and pain free: Yes tsites 05: PM Time: 17:09LOC: 5 = Fully awake and oriented or at pre-proc level tsites 05: PM Clinical Presentation: Unstable angina tsites 05: PM Vitals capture started with the following parameters, Patient=Adult, Interval=5 min, Initial Qgypqbjs=180 mmHg, Deflation Rate=5 mmHg, Cuff placed on Right Arm 05:09 PM Hair removed from procedure site in holding area using clippers. Bilateral groin prepped with Chloraprep by Mica Geller RN, safety strap applied then patient was draped. Skin intact. tsites 05:10 PM NLPI=647/88 mmhg 05:12 PM ASA Class CLASS II- Mild systemic disease (i.e. well-controlled diabetes, hypertension, asthma, cigarette smoking) [email or web address] 05:12 PM Time: 17:12 Versed 2 mg Intravenous Given by Tamiko Tapia RN filipe 05:12 PM Time: 17:12 Fentanyl 50 mcg Intravenous [facility] 05[facility]13 PM Recorded ECG: JQ=455 Condition=Condition 1 05:15 PM CS=454 bpm, VXYZ=338/83 mmhg, TbZ3=686.0 %, Resp=15 B/min, Comment=AFib 05:20 PM OB=124 bpm, TQFB=104/82 mmhg, IaR0=540.0 %, Resp=13 B/min, Comment=AFib 05:25 PM HR=94 bpm, KBYA=892/78 mmhg, BfU2=874.0 %, Resp=16 B/min, Comment=AFib 05:25 PM Time out performed according to hospital policy [email or web address] 05:28 PM Time: 17:25 17 ml Lidocaine 2% to right groin Subcutaneous Given by Alejandrina Kimball MD, [facility] [email or web address] 05:29 PM Access obtained by percutaneous puncture. 5Fr 10cm Terumo Bayard sheath placed in right Femoral artery. [id number] [email or web address] 05:30 PM IQ=305 bpm, ULKV=905/75 mmhg, SpO2=96.0 %, Resp=12 B/min, Comment=AFib 05:31 PM 5Fr FL 4 catheter inserted over the wire DN [email or web address] 05:31 PM LCA angiography performed in multiple views. [email or web address] 05:31 PM Recorded Pressure: Ao, XC=321, Condition=Condition 1 (Aorta) Ao 94/72/83 05:33 PM Catheter removed [email or web address] 05:33 PM 5Fr FR 4 catheter inserted over the wire DN [email or web address] 05:34 PM RCA angiography performed in multiple views. [email or web address] 05:35 PM JO=806 bpm, FHMA=718/73 mmhg, SpO2=98.0 %, Resp=18 B/min, Comment=AFib 05:35 PM Catheter removed [email or web address] 05:35 PM Pressure channel 1 zeroed. 05:36 PM Recorded Pressure: LV, HR=99, Condition=Condition 1 (Left Ventricle) LV 105/11/22 05:36 PM 5Fr Pigtail catheter inserted over the wire [facility] jcallihan 05:36 PM Catheter selectively placed in left ventricle [email or web address] 05:36 PM Bolus angiogram of left Ventricle complete: 10 ml/sec for a total of 30 mls [email or web address] 05:36 PM Recorded Pressure: LV, Ao, KB=758, Condition=Condition 1 (Left Ventricle) LV 85/51/56, (Aorta) Ao 86/68/77 05:37 PM Catheter removed [email or web address] 05:38 PM Wire removed [email or web address] 05:38 PM Bolus angiogram of right Femoral complete: 4 ml/sec for a total of 7 mls [email or web address] 05:39 PM Time: 17:38 Lasix 40 mg Intravenous Given by Tamiko Tapia RN [email or web address] 05:39 PM Procedure completed at 17:39 [email or web address] 05:40 PM LZ=716 bpm, PCRP=311/81 mmhg, SpO2=98.0 %, Resp=22 B/min, Comment=AFib 05:40 PM Sign out completed: Radiation Dose 254 mGy Fluoro Time: 1.2 Isovue 370 - 200ml contrast 71 ml given by Alejandrina Kimball MD, [facility]. Complications: NoneCardiac Rehab Consult needed: NoConfirmed administered medications: Yes [email or web address] 05:40 PM Isovue 370 - 200ml,1 Bottle(s) used. [email or web address] 05:41 PM Arterial sheath pulled, Mynx closure device used and was Successful [id number] S/N. [email or web address] 05:41 PM Estimated Blood Loss: less than 20cc [email or web address] 05:41 PM Post ECG Atrial Fibrillation [email or web address] 05:42 PM 17:42 Post Pulses Bilateral DP 1+ [email or web address] 05:45 PM GTPY=560/78 mmhg, Comment=AFib 05:45 PM Information taught Cardiac Cath and Mynx jcallihan 05:45 PM Education needs Procedure, Plan of Care, and Responsibilities of Patient in Care [email or web address] 05:45 PM Learning barriers :None [email or web address] 05:45 PM Education Methods Verbal [email or web address] 05:46 PM Education evaluation Able to repeat information [email or web address] 05:46 PM Site status No bleeding/hematoma - Rt Groin as reported by Sites, [place] RT (R) at 17:46 [email or web address] 05:46 PM Opsite applied jcallihan 05:46 PM Delay to floor No [email or web address] 05:46 PM Family placed in consult room. [email or web address] 05:47 PM Complications: None [email or web address] 05:47 PM Fluoro Time: 1.2 [email or web address] 05:47 PM Isovue 370 - 200ml contrast 71 ml given by Alejandrina Kimball MD, [facility]. [email or web address] 05:47 PM Radiation Dose 254 mGy [email or web address] 05:48 PM Coronary Dominance: right [email or web address] 05:48 PM Lesion found in Proximal RCA. Pre Stenosis: 100 Pre BREE Flow: [email or web address] 05:49 PM Lesion found in LMCA. Pre Stenosis: 30 Pre BREE Flow: [email or web address] 05:49 PM Lesion found in Proximal LAD. Pre Stenosis: 60 Pre BREE Flow: [email or web address] 05:49 PM Lesion found in Proximal Circumflex. Pre Stenosis: 50 Pre BREE Flow: [email or web address] 05:49 PM Lesion found in Ramus. Pre Stenosis: 30 Pre BREE Flow: [email or web address] 05:49 PM Left Main Coronary Artery with 30% stenosis [email or web address] 05:49 PM Proximal Left Anterior Descending Coronary Artery with 60% stenosis. If graft is supplying this territory, 0 % stenosis. [email or web address] 05:49 PM Circumflex, Obtuse Marginal, Left Posterior Descending, and Left Posterolateral Coronary Arteries with 50 % stenosis. If graft is supplying this area, 0 % stenosis [email or web address] 05:49 PM Right Coronary, Right Posterior Descending Arteries with Right Posterolateral and Acute Marginal branches with 100 % stenosis. If graft is supplying this area, 0 % stenosis jcallihan 05:50 PM Ramus with 30% stenosis. If graft is supplying this area, 0 % stenosis jcallihan 05:50 PM Report given to 2NE RN Pt taken to 2NE Room #32. 17:50 [email or web address] 05:50 PM Patient out of room: 17:50 [email or web address] Complications Complication None None Hemodynamics Pressures Site Systolic/A Wave Diastolic/V Wave Mean AO 94 72 83 LV 105 11 22 LV 85 51 56 AO 86 68 77 Post Procedure Information Rhythm: Atrial Fibrillation Post procedural instructions were given Closure Device Time Device Success/Fail 11/02/2017 5:47:00 PM MynxGrip Successful Site Checks Time Location Status Staff Sheath In? Note 05:46 PM Rt Groin No bleeding/hematoma Sites, [place] RT (R) Pulses Time Site Pre-Procedure Post-Procedure Note 11/02/2017 2:09:00 PM Bilateral DP 2+ 11/02/2017 2:09:00 PM Bilateral radial 2+ 5:42:00 PM Bilateral DP 1+ Updated by Prashant Tapia RN on 11/02/2017 5:57:35 PM electronically signed on 11/02/2017 5:58:15 PM with status of Final
[2017-11-02] MEDS: Nicotine 21 MG PATCH.TD24 TD SCH (18:11)
[2017-11-03] MEDS ORDERED: *HR* Heparin 5,000 UNIT/ML VIAL IVP ONE (00:01)
[2017-11-03] MEDS ORDERED: Heparin 25,000 UNIT/500 ML D5W 25,000 UNIT/500 ML BAG IVC SCH (00:01)
[2017-11-03] MEDS ORDERED: *HR* Heparin 5,000 UNIT/ML VIAL IVP PRN (00:01)
[2017-11-03 07:16] LABS: Basophils % 0.1 %; Eosinophils % 0.1 %; Hematocrit 34.3 % (37.5-50.1); Hemoglobin 11.7 g/dL (12.9-16.9); Immature Granulocytes % 0.3 % (0-4); Lymphocytes # 0.7 K/mcL (0.6-4.6); Lymphocytes % 10.1 %; Mean Corpuscular HGB Conc 34.1 g/dL (31.6-35.5); Mean Corpuscular Hemoglobin 31.4 pg (28.0-33.3); Mean Platelet Volume 9.7 fL (9.4-12.4); Monocytes # 0.4 K/mcL (0.0-1.3); Monocytes % 5.1 %; Neutrophils # 5.8 K/mcL (1.6-8.9); Platelet Count 189 K/mcL (140-400); Red Blood Count 3.73 M/mcL (4.19-5.50); Red Cell Distribution Width 13.3 % (11.5-14.5); Segmented Neutrophils % 84.3 %
[2017-11-03 07:44] LABS: BUN/Creatinine Ratio 30 (6-26); Blood Urea Nitrogen 32 mg/dL (6-20); Calcium 8.7 mg/dL (8.6-10.3); Carbon Dioxide 21 mEq/L (23-29); Chloride 98 mEq/L (98-107); Sodium 130 mEq/L (136-145); eGFR For African Americans > 60 (> 60); eGFR For Non-African Americans > 60 (> 60)
[2017-11-03] MEDS: Metoprolol XL (24 HR) Succ 25 MG TAB.ER.24H PO SCH (07:54)
[2017-11-03] MEDS: Nicotine 21 MG PATCH.TD24 TD SCH (07:54)
[2017-11-03] MEDS: Aspirin Enteric Coated 81 MG Tablet PO SCH (07:54)
[2017-11-03] MEDS: Levofloxacin 750 MG/150 ML 750 MG/150 ML BAG IVPB SCH (07:56)
[2017-11-03] MEDS: predniSONE 20 MG TABLET PO SCH (07:56)
[2017-11-03] MEDS: Insulin LISPRO 300 UNITS/3 ML VIAL SQ SCH ×4 (07:57→21:16)
[2017-11-03] MEDS: *HR* Heparin 5,000 UNIT/ML VIAL IVP PRN ×2 (08:17→21:14)
[2017-11-03 08:34] LABS: Glucose 196 mg/dL (70-105); Osmolality,Calculated 282 (280-300)
--- NOTE | 2017-11-03 08:47 | Internal Med Progress Note ---
<Neftali Worthy - Last Filed: 11/03/17 09:57> Date of Encounter: 11/03/17 Time of Encounter: 08:43 - Assessment and plan (1) Atrial fibrillation with rapid ventricular response Current Visit: Yes Status: Acute Assessment and plan: Continue heart monitor and heparin drip [facility] yesterday carried out as planned. Showed 100% blockage RCA, collaterals present. All others 60% or less stenosis. Considering myocarditis as cause (2) Acute bronchitis with COPD Current Visit: Yes Status: Acute Assessment and plan: Resolving. Continue prednisone 20 mg po and levofloxacin, Day 3 Patient will need PFTs as outpatient after resolution of acute illness to establish diagnosis of COPD. Patient is on intermittent oxygen, though saturation is consistently high. Nebulizer breathing treatment as needed. (3) Diabetes Current Visit: Yes Status: Chronic Assessment and plan: Controlled. Continue sliding scale insulin. Qualifiers: Diabetes mellitus type: type 2 Diabetes mellitus complication status: without complication Diabetes mellitus [facility] insulin use: without electrical test engineer use Qualified Code(s): E11.9 - Type 2 diabetes mellitus without complications (4) Hypertension Current Visit: Yes Status: Chronic Assessment and plan: Controlled. Continue home medications. Qualifiers: Hypertension type: essential hypertension Qualified Code(s): I10 - Essential (primary) hypertension (5) Hyperlipidemia Current Visit: Yes Status: Chronic Assessment and plan: Continue gemfibrozil Qualifiers: Hyperlipidemia type: unspecified Qualified Code(s): E78.5 - Hyperlipidemia , unspecified (6) Hemochromatosis Current Visit: No Status: Chronic Assessment and plan: Patient with known hemochromatosis Doubt cardiac deposition as cause of the patient's symptoms Qualifiers: Hemochromatosis type: hereditary Qualified Code(s): E83.110 - Hereditary hemochromatosis - Subjective Interval history: Patient is feeling weak and fatigued this morning. He still complains of dyspnea when lying flat and has trouble sleeping at night because of it. He was able to lie flat for the [facility] yesterday. He was able to walk around yesterday without using oxygen. He is still on 3.5 liters intermittently with consistently high sats around 97. He continues to have intermittent fluttering in his chest. He vomited during the night last night and woke up with nausea and sweating. Nausea lasted for 15 minutes with concommitent chest pain which was mild and has since faded. He denies diarrhea, feelings of distention or abdominal pain. He also denies any other episodes of chest pain. - Constitutional Vitals: Temp Pulse Resp BP Pulse Ox 97.6 F 76 16 106/83 97 11/03/17 07:13 11/03/17 07:13 11/03/17 07:13 11/03/17 07:13 11/03/17 07:13 General appearance: Present: cooperative, A&O X 3, pleasant, no acute distress, answers questions appropriately - Head Head exam: Present: atraumatic, normal inspection, normocephalic - ENT ENT exam: Present: mucous membranes moist - Neck Neck exam general surgery: Present: trachea midline - Respiratory Respiratory exam: Present: decreased breath sounds, CTAB - Cardiovascular Cardiovascular exam: Present: irregular rhythm, +S1, +S2 - GI/Abdominal GI/Abdominal exam: Present: normal bowel sounds, soft. Absent: tenderness - Extremities Exam Extremities exam: Absent: pedal edema - Neurological Exam Neurological exam: Present: alert, oriented X3 - Psychiatric Psychiatric exam: Present: normal affect, normal mood. Absent: agitated, anxious - Skin Skin exam: Present: dry, warm Internal Medicine: Result - Labs CBC & Chem 7: 11/03/17 07:00 11/03/17 07:00 Labs: Short CBC 11/03/17 Range/Units 07:00 WBC 6.9 (4.3-11.1) K/mcL Hgb 11.7 L (12.9-16.9) g/dL Hct 34.3 L (37.5-50.1) % Plt Count 189 (140-400) K/mcL Neutrophils # 5.8 (1.6-8.9) K/mcL BMP 11/03/17 07:00 Sodium 130 L Potassium 3.0 L Chloride 98 Carbon Dioxide 21 L BUN 32 H Creatinine 1.07 Glucose 196 H Calcium 8.7 - ABG Interpretation ABG results: PT/INR, D-dimer PT 12.8 Seconds (9.4-12.1) H 11/01/17 02:35 - Impressions Impressions Chest X-Ray 11/02/17 10:09 IMPRESSION: Stable borderline enlarged heart size. No acute pulmonary process. D/ / 11/02/2017 11:43:16 Jamaal Jacobs MD / germaine Interpreting Provider: Jamaal Jacobs MD Consult Discharge Plan - Plan Referrals: Peggy Perdomo, PSYCHOLOGY ASSISTANT [Primary Care Provider] - 11/05/17 8:30 am <Constantino Toledo T - Last Filed: 11/03/17 14:35> Date of Encounter: 11/03/17 - Constitutional Vitals: Temp Pulse Resp BP Pulse Ox 97.8 F 102 16 101/75 94 11/03/17 11:56 11/03/17 11:56 11/03/17 11:56 11/03/17 11:56 11/03/17 11:56 Internal Medicine: Result - Labs CBC & Chem 7: 11/03/17 07:00 11/03/17 07:00 Labs: Short CBC 11/03/17 Range/Units 07:00 WBC 6.9 (4.3-11.1) K/mcL Hgb 11.7 L (12.9-16.9) g/dL Hct 34.3 L (37.5-50.1) % Plt Count 189 (140-400) K/mcL Neutrophils # 5.8 (1.6-8.9) K/mcL BMP 11/03/17 07:00 Sodium 130 L Potassium 3.0 L Chloride 98 Carbon Dioxide 21 L BUN 32 H Creatinine 1.07 Glucose 196 H Calcium 8.7 - ABG Interpretation ABG results: PT/INR, D-dimer PT 12.8 Seconds (9.4-12.1) H 11/01/17 02:35 - Attending Attestation I examined this patient and my medical decision-making was reviewed with the Resident Physician on 11/03/17. I agree with the documented findings, disposition and treatment plan as described except to the extent set forth below. Seen and examined at the bedside 57 M being managed for acute systolic CHF with EF 10-15%, COPDE with bronchitis , Afib with RVR He has a PMH of DM, Tobacco abuse, possible CAD/PVD, Hemochromatosis He denies new complains s/p LHC 11/02 with severe 3 vessel disease and recommendation to optimize medical managament He is ambulatory, not hypoxic on room air during eval Exam is unremarkable and his chest is CTAB Labs and Imaging reviewed, Hypokalemia, CBC is probably dilutional, slight drop in Hb. Plan: Continue ASA/Lasix/ACEI/BB, Bridge with warfarin , CHADS score of 3 for CHF, DM, HTN High risk due to use of heparin infusion, risk of bleed Ambulate as tolerated Replace potassium Rest of details as in the resident physicians documentation.
--- NOTE | 2017-11-03 10:29 | Cardiology Progress Note ---
Addendum entered and electronically signed by Peter Upton DO 11/03/17 14:05: Patient will be given a life vest prior to discharge. Will follow up with cardiology in the outpatient setting in one week. Original Note: <Peter Upton - Last Filed: 11/03/17 13:00> Date of Encounter: 11/03/17 Time of Encounter: 08:45 Assessment and Plan (1) Atrial fibrillation with rapid ventricular response Current Visit: Yes Status: Acute Patient presented with elevated heart rate of 154 bpm; EKG demonstrated A. fib with RVR. Possibly triggered by acute bronchitis; possibly bacterial. Echocardiogram demonstrated an ejection fraction of 10-15%. LHC was performed on 11/02/16. Demonstrated the following: -Severe 3 vessel coronary artery disease. -50% stenosis in the ostial circumflex -100% stenosis in proximal RCA. -30% stenosis in LMCA. Plan: -ASA 81 mg -Heparin drip; CHA2 DS2 VASc score of 2 (HTN, DM) -Continuous cardiac monitoring -Recommend aggressive medical therapy. (2) Hypertension Current Visit: Yes Status: Chronic Patient has known history of HTN Plan: -Hydralazine 10 mg IV Q6 PRN -HCTZ 25 mg PO QD -Lisinopril 40 mg PO QD -Nifedipine XL 30 mg PO QD Qualifiers: Hypertension type: essential hypertension Qualified Code(s): I10 - Essential (primary) hypertension (3) Tobacco abuse Current Visit: Yes Status: Chronic Patient admits to being a pack per day smoker. Plan: -Nicotine patch. (4) Hyperlipidemia Current Visit: Yes Status: Chronic Gemfibrozil 600 mg PO BID WM Qualifiers: Hyperlipidemia type: unspecified Qualified Code(s): E78.5 - Hyperlipidemia , unspecified Discussion w patient/family: The assessment and plan as outlined above was discussed with the patient and/or family members who expressed understanding and agreement. All questions were answered. Thank you for involving us in the care of your patient. Please call with any questions. Subjective Interval history: Patient seen and examined at bedside this morning. Reports that he is feeling well today. Patient is status post cardiac catheterization. Denies any palpitations or seizure. Denies having any shortness of breath or cough. Patient was resting comfortably in bed and has no completed this time. Objective Vital Signs, Last 4 Hours Temp Pulse Resp BP Pulse Ox 11/03/17 07:13 97.6 F 76 16 106/83 97 General: Conversant, No Apparent Distress HEENT: Atraumatic, Normocephaly, Mucus Membranes Moist Neck: No JVD, Normal carotid pulses Cardiac: Reg Rate and Rhythm, Normal S1 and S2, No Murmur Lungs: Normal Breath Sounds, No Wheeze, Rales, Rhonchi Neuro: Alert and responsive, No focal deficits noted Skin: No rashes noted on visualized skin Musculoskeletal: No Chest Wall Tenderness Extremities: No Clubbing, No Cyanosis, No Edema, Normal Pulses Results 11/03/17 07:00 11/03/17 07:00 Lab Results 11/02/17 11/02/17 11/03/17 14:42 18:57 07:00 WBC 6.9 Hgb 11.7 L Hct 34.3 L Plt Count 189 APTT 70.2 H 31.5 D Sodium Potassium Chloride Carbon Dioxide BUN Creatinine Glucose Calcium 11/03/17 11/03/17 07:00 07:00 WBC Hgb Hct Plt Count APTT 50.4 H D Sodium 130 L Potassium 3.0 L Chloride 98 Carbon Dioxide 21 L BUN 32 H Creatinine 1.07 Glucose 196 H Calcium 8.7 Consult Discharge Plan - Plan Referrals: Peggy Perdomo, SUPERVISOR DOPING [Primary Care Provider] - 11/05/17 8:30 am <Dirk Leyva - Last Filed: 11/03/17 16:10> Date of Encounter: 11/03/17 Assessment and Plan (1) CHF (congestive heart failure) Current Visit: Yes Status: Acute I examined this patient and my medical decision-making was reviewed with the Resident Physician. I agree with the documented findings, disposition and treatment plan as described except to the extent set forth below. 57 YOM with ICM and EF 10% currently euvolemic. Occluded large RCA receives collaterals from LCA Medical management Viability with CMRI Life Vest Qualifiers: Congestive heart failure type: systolic Congestive heart failure chronicity : acute on chronic Qualified Code(s): I50.23 - Acute on chronic systolic ( congestive) heart failure Discussion w patient/family: The assessment and plan as outlined above was discussed with the patient and/or family members who expressed understanding and agreement. All questions were answered. Thank you for involving us in the care of your patient. Please call with any questions. Results 11/03/17 07:00 11/03/17 07:00 Lab Results 11/02/17 11/03/17 11/03/17 18:57 07:00 07:00 WBC 6.9 Hgb 11.7 L Hct 34.3 L Plt Count 189 APTT 31.5 D Sodium 130 L Potassium 3.0 L Chloride 98 Carbon Dioxide 21 L BUN 32 H Creatinine 1.07 Glucose 196 H Calcium 8.7 11/03/17 11/03/17 07:00 14:23 WBC Hgb Hct Plt Count APTT 50.4 H D 64.3 H Sodium Potassium Chloride Carbon Dioxide BUN Creatinine Glucose Calcium
[2017-11-03] MEDS: Isosorbide MONOnitrate (24 HR) 30 MG TAB.ER.24H PO SCH (17:01)
[2017-11-03] MEDS ORDERED: *HR* Warfarin 5 MG TABLET PO ONE (18:00)
[2017-11-03] MEDS ORDERED: Warfarin perPT PO PRN (18:00)
[2017-11-03] MEDS: *HR* LORazepam 2 MG/ML VIAL IVP PRN (23:33)
[2017-11-04 04:15] LABS: Hematocrit 35.9 % (37.5-50.1); Mean Corpuscular HGB Conc 33.4 g/dL (31.6-35.5); Mean Corpuscular Volume 92.8 fL (83.0-100.0); Mean Platelet Volume 9.6 fL (9.4-12.4); Platelet Count 193 K/mcL (140-400); Red Blood Count 3.87 M/mcL (4.19-5.50); Red Cell Distribution Width 13.5 % (11.5-14.5)
[2017-11-04 04:20] LABS: INR 1.7
[2017-11-04 04:43] LABS: Activated Partial Thrombo Time 123.5 Seconds (26.0-36.0)
[2017-11-04 04:44] LABS: BUN/Creatinine Ratio 27 (6-26); Blood Urea Nitrogen 27 mg/dL (6-20); Calcium 8.9 mg/dL (8.6-10.3); Carbon Dioxide 25 mEq/L (23-29); Chloride 98 mEq/L (98-107); Glucose 140 mg/dL (70-105); Osmolality,Calculated 279 (280-300); Potassium 3.8 mEq/L (3.5-5.1); Sodium 131 mEq/L (136-145); eGFR For African Americans > 60 (> 60); eGFR For Non-African Americans > 60 (> 60)
[2017-11-04 04:48] LABS: Heparin anti-factor XA UFH 0.72 IU/mL (0.30-0.70)
[2017-11-04] MEDS: Insulin LISPRO 300 UNITS/3 ML VIAL SQ SCH ×4 (09:07→22:46)
[2017-11-04] MEDS: Nicotine 21 MG PATCH.TD24 TD SCH (09:13)
[2017-11-04] MEDS: Isosorbide MONOnitrate (24 HR) 30 MG TAB.ER.24H PO SCH (09:14)
[2017-11-04] MEDS: levoFLOXacin 750 MG TABLET PO SCH (09:14)
[2017-11-04] MEDS: predniSONE 20 MG TABLET PO SCH (09:14)
[2017-11-04] MEDS: Aspirin Enteric Coated 81 MG Tablet PO SCH (09:15)
[2017-11-04] MEDS: Metoprolol XL (24 HR) Succ 25 MG TAB.ER.24H PO SCH (09:15)
[2017-11-04] MEDS: Furosemide 20 MG TABLET PO SCH (09:15)
--- NOTE | 2017-11-04 09:23 | Internal Med Progress Note ---
<Neftali Worthy - Last Filed: 11/04/17 13:48> Date of Encounter: 11/04/17 Time of Encounter: 09:20 - Assessment and plan (1) Atrial fibrillation with rapid ventricular response Current Visit: Yes Status: Acute Assessment and plan: Continue heart monitor At rest, hovers from 70-120 Increasing metoprolol from 25 to 50 mg Changed heparin to lovenox, bridging to coumadin Patient to be discharged on life vest Plan for [facility] Patient to follow up with cardiology in 1 week Plan for discharge tomorrow (2) Acute bronchitis with COPD Current Visit: Yes Status: Acute Assessment and plan: Resolving. Continue prednisone 20 mg po and levofloxacin, Day 4, plan to stop both tomorrow Patient will need PFTs as outpatient after resolution of acute illness to establish diagnosis of COPD. Patient is on intermittent oxygen, though saturation is consistently high. We will discontinue O2. Nebulizer breathing treatment as needed. (3) Diabetes Current Visit: Yes Status: Chronic Assessment and plan: Controlled. Continue sliding scale insulin. Qualifiers: Diabetes mellitus type: type 2 Diabetes mellitus complication status: without complication Diabetes mellitus intermodal dispatcher insulin use: without longterm use Qualified Code(s): E11.9 - Type 2 diabetes mellitus without complications (4) Hypertension Current Visit: Yes Status: Chronic Assessment and plan: Controlled. Continue home medications. Monitor with increase in metoprolol Qualifiers: Hypertension type: essential hypertension Qualified Code(s): I10 - Essential (primary) hypertension (5) Hyperlipidemia Current Visit: Yes Status: Chronic Assessment and plan: Continue gemfibrozil Qualifiers: Hyperlipidemia type: unspecified Qualified Code(s): E78.5 - Hyperlipidemia , unspecified (6) Hemochromatosis Current Visit: No Status: Chronic Assessment and plan: Patient with known hemochromatosis Doubt cardiac deposition as cause of the patient's symptoms Qualifiers: Hemochromatosis type: hereditary Qualified Code(s): E83.110 - Hereditary hemochromatosis - Subjective Interval history: Patient is feeling better this morning. He still complains of mild dyspnea when lying flat but he says this has improved. He was able to sleep better last night. He was able to walk around yesterday without using oxygen. He notes mild chest tightness when walking that resolves with rest. He is still on 3.5 liters intermittently with consistently high sats around 97. He still has a cough with white sputum production. He denies any more episodes of vomiting, nausea and sweating. He denies diarrhea, feelings of distention or abdominal pain. - Constitutional Vitals: Temp Pulse Resp BP Pulse Ox 97.5 F L 94 18 108/75 99 11/04/17 07:50 11/04/17 07:50 11/04/17 07:50 11/04/17 07:50 11/04/17 07:50 General appearance: Present: cooperative, A&O X 3, pleasant, no acute distress, answers questions appropriately - Head Head exam: Present: atraumatic, normal inspection, normocephalic - Neck Neck exam general surgery: Present: trachea midline - Respiratory Respiratory exam: Present: CTAB. Absent: accessory muscle use, respiratory distress - Cardiovascular Cardiovascular exam: Present: irregular rhythm, +S1, +S2. Absent: tachycardia - GI/Abdominal GI/Abdominal exam: Present: normal bowel sounds, soft. Absent: tenderness - Psychiatric Psychiatric exam: Present: normal affect, normal mood. Absent: agitated, anxious - Skin Skin exam: Present: dry, warm Internal Medicine: Result - Labs CBC & Chem 7: 11/04/17 04:04 11/04/17 04:04 Labs: Short CBC 11/04/17 Range/Units 04:04 WBC 8.2 (4.3-11.1) K/mcL Hgb 12.0 L (12.9-16.9) g/dL Hct 35.9 L (37.5-50.1) % Plt Count 193 (140-400) K/mcL BMP 11/04/17 04:04 Sodium 131 L Potassium 3.8 D Chloride 98 Carbon Dioxide 25 BUN 27 H Creatinine 1.01 Glucose 140 H Calcium 8.9 - ABG Interpretation ABG results: PT/INR, D-dimer PT 18.0 Seconds (9.4-12.1) H 11/04/17 04:04 Consult Discharge Plan - Plan Referrals: Peggy Perdomo CNP [Primary Care Provider] - 11/05/17 8:30 am <Constantino Toledo - Last Filed: 11/04/17 17:04> Date of Encounter: 11/04/17 - Constitutional Vitals: Temp Pulse Resp BP Pulse Ox 97.9 F 126 18 103/72 98 11/04/17 16:00 11/04/17 16:00 11/04/17 16:00 11/04/17 16:00 11/04/17 16:00 Internal Medicine: Result - Labs CBC & Chem 7: 11/04/17 04:04 11/04/17 04:04 Labs: Short CBC 11/04/17 Range/Units 04:04 WBC 8.2 (4.3-11.1) K/mcL Hgb 12.0 L (12.9-16.9) g/dL Hct 35.9 L (37.5-50.1) % Plt Count 193 (140-400) K/mcL BMP 11/04/17 04:04 Sodium 131 L Potassium 3.8 D Chloride 98 Carbon Dioxide 25 BUN 27 H Creatinine 1.01 Glucose 140 H Calcium 8.9 - ABG Interpretation ABG results: PT/INR, D-dimer PT 18.0 Seconds (9.4-12.1) H 11/04/17 04:04 - Attending Attestation I examined this patient and my medical decision-making was reviewed with the Resident Physician on 11/04/17. I agree with the documented findings, disposition and treatment plan as described except to the extent set forth below. Seen and examined at the bedside 57 M being managed for acute systolic CHF with EF 10-15%, COPDE with bronchitis , Afib with RVR He has a PMH of DM, Tobacco abuse, possible CAD/PVD, Hemochromatosis He denies new complains s/p [facility] 11/02 with severe 3 vessel disease and recommendation to optimize medical managament He is ambulatory, not hypoxic on room air during eval He has no new complaints. Exam is unremarkable and his chest is CTAB Labs and Imaging reviewed, CBC and chemistry stable at baseline. INR is 1.7. Plan: Continue ASA/Lasix/ACEI/BB, Continue warfarin and Lovenox,, CHADS score of 3 for CHF, DM, HTN Ambulate as tolerated LifeVest to be provided by cardiology prior to discharge. Rest of details as in the resident physicians documentation.
[2017-11-04] MEDS: *HR* Enoxaparin 100 MG/ML SYRINGE SQ SCH ×2 (13:35→22:46)
[2017-11-04] MEDS ORDERED: *HR* Warfarin 5 MG TABLET PO ONE (18:00)
[2017-11-04] MEDS ORDERED: traZODone 50 MG TABLET PO PRN (22:51)
[2017-11-05] MEDS: *HR* LORazepam 2 MG/ML VIAL IVP PRN (01:14)
[2017-11-05 03:52] LABS: INR 1.7
[2017-11-05 03:56] LABS: Hematocrit 33.1 % (37.5-50.1); Hemoglobin 11.2 g/dL (12.9-16.9); Mean Corpuscular HGB Conc 33.8 g/dL (31.6-35.5); Mean Corpuscular Hemoglobin 31.8 pg (28.0-33.3); Platelet Count 208 K/mcL (140-400); Red Blood Count 3.52 M/mcL (4.19-5.50); Red Cell Distribution Width 13.4 % (11.5-14.5)
[2017-11-05 04:04] LABS: BUN/Creatinine Ratio 25 (6-26); Blood Urea Nitrogen 29 mg/dL (6-20); Calcium 8.9 mg/dL (8.6-10.3); Carbon Dioxide 26 mEq/L (23-29); Chloride 98 mEq/L (98-107); Glucose 109 mg/dL (70-105); Osmolality,Calculated 278 (280-300); Potassium 3.5 mEq/L (3.5-5.1); Sodium 131 mEq/L (136-145); eGFR For African Americans > 60 (> 60); eGFR For Non-African Americans > 60 (> 60)
--- NOTE | 2017-11-05 08:58 | Discharge Summary ---
<Neftali Worthy - Last Filed: 11/05/17 12:18> Date of Encounter: 11/05/17 Time of Encounter: 08:00 - Discharge Diagnosis (1) Atrial fibrillation with rapid ventricular response Priority: Primary Status: Acute (2) Acute bronchitis with COPD Priority: Primary Status: Acute (3) Diabetes Priority: Secondary Status: Chronic Qualifiers: Diabetes mellitus type: type 2 Diabetes mellitus complication status: without complication Diabetes mellitus ferry terminal supervisor insulin use: without fpc use Qualified Code(s): E11.9 - Type 2 diabetes mellitus without complications (4) Hypertension Priority: Secondary Status: Chronic Qualifiers: Hypertension type: essential hypertension Qualified Code(s): I10 - Essential (primary) hypertension (5) Hyperlipidemia Priority: Secondary Status: Chronic Qualifiers: Hyperlipidemia type: unspecified Qualified Code(s): E78.5 - Hyperlipidemia , unspecified (6) Hemochromatosis Priority: Secondary Status: Chronic Qualifiers: Hemochromatosis type: hereditary Qualified Code(s): E83.110 - Hereditary hemochromatosis - Discharge Medications Prescriptions: Atorvastatin [Lipitor] 80 mg PO HS #60 tablet Enoxaparin [Lovenox] 100 mg SQ Q12H #4 syringe Furosemide [Lasix] 20 mg PO DAILY #30 tablet Metoprolol XL (24 HR) Succ [Toprol Xl] 50 mg PO DAILY #30 tab.er.24h Warfarin [Coumadin] 3 mg PO 1800 #14 tablet Home Medications: Aspirin Enteric Coated [Aspirin EC] 81 mg PO DAILY 06/07/15 [History] Docusate [Colace] 100 mg PO DAILY PRN 06/07/15 [History] HYDROcodone/Acet 5/325 mg [Pray 5-325 mg] 1 tab PO TID PRN 06/07/15 [History] Omeprazole [PriLOSEC] 20 mg PO DAILY 06/07/15 [History] Cholecalciferol (D-3) [Vitamin D] 1,000 unit PO DAILY 07/13/16 [History] Glimepiride [Amaryl] 1 mg PO BID 07/13/16 [History] Lisinopril [Zestril] 40 mg PO DAILY 07/13/16 [History] Albuterol Sulfate [Albuterol Inhaler] 2 puff IH QID #1 inhaler 10/11/17 [Rx] Sheridan-3/Dha/Epa/Fish Oil [Fish Oil 1,000 mg Softgel] 1 cap PO DAILY 10/15/17 [ History] Atorvastatin [Lipitor] 80 mg PO HS #60 tablet 11/05/17 [Rx] Enoxaparin [Lovenox] 100 mg SQ Q12H #4 syringe 11/05/17 [Rx] Furosemide [Lasix] 20 mg PO DAILY #30 tablet 11/05/17 [Rx] Metoprolol XL (24 HR) Succ [Toprol Xl] 50 mg PO DAILY #30 tab.er.24h 11/05/17 [ Rx] Warfarin [Coumadin] 3 mg PO 1800 #14 tablet 11/05/17 [Rx] Allergies/Adverse Reactions: 3 Allergy/AdvReac Type Severity Reaction Status Date / Time No Known Allergies Allergy Verified 11/01/17 02:32 Date of admission: 11/03/17 18:10 Primary care physician: Peggy Perdomo CNP Discharging clinician: Neftali Worthy Anticipated date of discharge: 11/05/17 - Patient Status Disposition: Home, Self-Care Condition: Fair Functional capacity at discharge: independent ambulation Overall status at discharge: patient is not back to baseline - Discharge Instructions Follow Up With: Peggy Perdomo CNP [Primary Care Provider] - 11/10/17 11:00 am Additional Instructions: Follow up with cardiology as scheduled. Follow up with coumadin clinic on Wednesday at 8 am. Continue to take anticoagulation, both lovenox and coumadin. - Diet and Activity Activity: resume usual activities as tolerated Diet: advance to your usual diet Hospital course: Mr. Church is a 57 year old male with a medical history of Hypertension, diabetes, and hyperlipidemia who presented to the ER on 10/31/2017 with dyspnea and racing heart. He was found on EKG to be in atrial fibrillation with rapid ventricular response. No ischemic change was noted. He had no previous history of Afib. He was admitted due to a recent diagnosis of bronchitis and presented with a productive cough. A CXR showed an enlarged heart and possible pericardial effusion. Bedside ultrasound showed no effusion or tamponade. After stabilizing him in the ER he was admitted to the floor on a cardizem drip. Upon admission to the floor by Dr. Carr, patient was placed on ceftriaxone and steroids for acute bronchitis, a heparin drip due to a CHADS VASc score of 2, and continuous cardiac monitoring. Evaluation of his heart included an echo, which showed widespread hypokinesia and an EF of 10-15%, a left heart cath which showed 30% stenosis in Ramus and LMCA, 50% in circumflex, 60% in LAD, and 100% in RCA with collaterals. Patient continued to be stable on the floor with no events. Repeat telemetry continued to show Afib and his bronchitis improved throughout the course of his stay. Plan is to discharge him on anticoagulation. Cardiology is appealing insurance company to provide a life vest and will follow up with him w/in 1 week. - Time Spent with Patient Total time spent providing and/or coordinating discharge services: - Constitutional Vitals: Temp Pulse Resp BP Pulse Ox 98.2 F 92 16 89/68 94 11/05/17 07:04 11/05/17 07:04 11/05/17 07:04 11/05/17 07:04 11/05/17 07:04 General appearance: Present: cooperative, A&O X 3, pleasant, no acute distress, answers questions appropriately - Head Head exam: Present: atraumatic, normal inspection, normocephalic - Neck Neck exam general surgery: Present: trachea midline - Respiratory Respiratory exam: Present: CTAB. Absent: accessory muscle use - Cardiovascular Cardiovascular exam: Present: irregular rhythm, +S1, +S2 - Extremities Exam Extremities exam: Absent: calf tenderness, pedal edema - Psychiatric Psychiatric exam: Present: normal affect, normal mood. Absent: agitated, anxious - Skin Skin exam: Present: dry, warm <Constantino Toledo - Last Filed: 11/05/17 13:10> Date of Encounter: 11/05/17 Date of admission: 11/03/17 18:10 Primary care physician: Peggy Perdomo CNP Hospital course: Mr. Church is a 57 year old male - Time Spent with Patient Total time spent providing and/or coordinating discharge services: Greater than 30 minutes - Constitutional Vitals: Temp Pulse Resp BP Pulse Ox 97.6 F 82 16 97/78 97 11/05/17 11:15 11/05/17 11:15 11/05/17 11:15 11/05/17 11:15 11/05/17 11:15 - Attending Attestation I examined this patient and my medical decision-making was reviewed with the Resident Physician on 11/05/17. I agree with the documented findings, disposition and treatment plan as described except to the extent set forth below. Seen and examined at the bedside 57 M being managed for acute systolic CHF with EF 10-15%, COPDE with bronchitis , Afib with RVR, Cardiomyopathy He has a PMH of DM, Tobacco abuse, possible CAD/PVD, Hemochromatosis, Tobacco abuse He denies new complains s/p [facility] 11/02 with severe 3 vessel disease and recommendation to optimize medical management Patient has been ambulatory and has been started on anticoagulation for Afib Patient was meant to get a life vest prior to discharge due to his severely low EF and global hypokinesis, however, insurance has no approved of it, and cardiology did state he could go home today and follow up with them as out- patient He will be discharged on Coumadin and Lovenox for bridging, as well as BB/ACEI/ Lasix INR follow up set up already in INR clinic for Thursday 11/09 at 8a.m. Continue other home meds Verbalized understanding of plan of care Rest of details as in resident physician's documentation
[2017-11-05] MEDS ORDERED: Metoprolol XL (24 HR) Succ 50 MG TAB.ER.24H PO SCH (09:00)
[2017-11-05] MEDS: Insulin LISPRO 300 UNITS/3 ML VIAL SQ SCH ×2 (09:19→12:30)
[2017-11-05] MEDS: predniSONE 20 MG TABLET PO SCH (10:15)
[2017-11-05] MEDS: Aspirin Enteric Coated 81 MG Tablet PO SCH (10:15)
[2017-11-05] MEDS: levoFLOXacin 750 MG TABLET PO SCH (10:15)
[2017-11-05] MEDS: *HR* Enoxaparin 100 MG/ML SYRINGE SQ SCH (10:15)
[2017-11-05] MEDS: Isosorbide MONOnitrate (24 HR) 30 MG TAB.ER.24H PO SCH (10:15)
[2017-11-05] MEDS: Furosemide 20 MG TABLET PO SCH (10:15)
[2017-11-05] MEDS: Nicotine 21 MG PATCH.TD24 TD SCH (10:16)
[2017-11-05 11:19] VITALS: BP 97/78
[2017-11-05] MEDS ORDERED: *HR* Warfarin 3 MG TABLET PO SCH (18:00)
== END 2017-11-05 14:17 | disposition home or self-care (01) | DRG 286 ==
LOC: EMEROO 02:27 → 2NENU 02:27 → SUATTDRO 04:09 → 2NENU 04:51
PROVIDERS: ADMIT Internal Medicine; ATTEND Internal Medicine